=== PATIENT | female | born 1955 | race Hispanic/Latino ===

== ENCOUNTER 2016-12-26 13:55 | Emergency (ER) | payer OTHER ==
[~2016-12-26] VITALS: Ht 160 cm; Wt 68.6 kg
[~2016-12-26 13:55] MED LIST: ASPI-973 PO; LISI-567 PO; METF1000 PO; MICO150A TP; POLY17PO15 PO; mevacor
[2016-12-26 13:58] VITALS: BP 149/70; PULSE 116; RESP 20; O2SAT 97
[2016-12-26] MEDS ORDERED: LOVA20TA PO (14:04)
[2016-12-26] MEDS ORDERED: Ondansetron 2 mg/mL 2 mL Inj IVPUSH PRN (14:30)
[2016-12-26] MEDS ORDERED: 0.9% Sodium Chloride 1,000 ML IV ONE (14:30)
[2016-12-26] MEDS ORDERED: Pantoprazole 4 mg/mL 10 mL Inj IVPUSH ONE (14:30)
[2016-12-26 14:58] LABS: BASOPHILS % (AUTO) 0.2 % (0-3); EOSINOPHILS % (AUTO) 0.6 % (0-5); MONOCYTES % (AUTO) 0.4 % (4-12); Mean Corpuscular Volume 81.8 fL (81-100); NEUTROPHILS % (AUTO) 91.6 % (40-74); Platelet Count 161 bil/L (150-400)
[2016-12-26 15:03] LABS: Magnesium 1.5 mg/dL (1.6-2.6)
--- NOTE | 2016-12-26 15:05 | ED.REPORT ---
HPI-Abd Pain F 40 and Over Date of Service Dec 26, 2016 ED Provider: Gómez Ayala MD The patient is a 61 year old female w/ a hx of DM and HTN who presents to the ED from accompanied by her family due to vomiting onset yesterday. At the her temperature measured 103F, it is 102F at the ED. Her was admitted to [facility] yesterday to keep for overnight observation for a potential heart attack. Upon hearing this news, she had one episode of vomiting and began to experience nausea and dizziness. Today, after hearing more stressful news, she vomited two more times. She denies cough, dysuria, incontinence, diaphoresis, and chest pain. She has had similar stress reactions in the past. Her reportedly has the influenza. Other small children in the house have been sick as well. Nursing Notes Stated Complaint: VOMITING Chief Complaint: Female Abdominal Pain Nursing Notes Reviewed: Yes Allergies: Coded Allergies: No Known Allergies (Verified Allergy, Unknown, 12/26/16) Scheduled Aspirin (Aspirin) 81 Mg Tablet 81 MG PO DAILY Lisinopril (Lisinopril) 20 Mg Tablet 20 MG PO DAILY Lovastatin (Lovastatin) 20 Mg Tablet 20 MG PO BID Metformin (Glucophage) 1,000 Mg Tablet 1,000 MG PO BID Ondansetron ODT (Ondansetron ODT) 4 Mg Tab.rapdis 4 MG PO TID Sulfamethoxazole/Trimeth 800-160 mg (Bactrim DS) 1 Each Tablet 1 TABLET PO BID General Time Seen by MD: 15:04 Chief Complaint Vomiting mild Hx Obtained From: Patient Arrived By: Walk-in Sudden in Onset?: Yes Onset Occurred: Yesterday Symptom Duration: Since onset Recent Healthcare: No recent doctor visit, No recent hospitalization Similar Sx Previous: No Past Medical History Past Medical History Reports: Diabetes mellitus, Hypertension Past Surgical History denies Smoking History Unknown if Ever Smoker Social History Other Social History: Good social support, , Local resident Ambulatory Status Independent Review of Systems Constitutional: Reports: Fever Respiratory: Denies: Non-productive cough Cardiovascular: Denies: Chest pain GI: Reports: Nausea, Vomiting Female: Denies: Dysuria, Incontinence Complete sys rev & neg: except as marked. Skin: Denies Diaphoresis Neurologic: Reports: Dizziness Physical Exam Vital Signs Vital Signs (First) Date Time Temp Pulse Resp B/P Pulse Ox O2 Delivery O2 Flow Rate FiO2 3/18/17 13:58 39.0 116 20 149/70 97 Room Air Initial VS: Reviewed Head / Eyes: Atraumatic, Normocephalic, PERRL ENT: Mucous membranes moist, Conjunctiva normal, No scleral icterus Neck: Supple, Non-tender, Full range of motion Extremities: Vascular intact, Neuro intact, No swelling, No tenderness Skin: Warm, Dry, No cyanosis Psychiatric: Mood/affect normal, Behavior normal, Normal thought content General/Constitutional: Awake, Alert, Cooperative Respiratory / Chest: Atraumatic, Breath sounds NL, No respiratory distress Cardiovascular: Heart rate NL, Regular rhythm, Heart sounds NL, No gallop, No murmurs, No rubs Tenderness/Guarding/Rebound: Positive: Tender RLQ... (Mild) Back: No CVA tenderness Neck: Atraumatic, Supple, Non-tender Interpretation & Diagnostics Lab Results Interpretation Result Diagram: 12/26/16 1415 12/26/16 1415 Test 12/26/16 14:15 12/26/16 15:35 12/26/16 18:15 White Blood Count 5.3th/mm3 (3.8-10.1) Red Blood Count 4.28mil/mm3 (3.90-5.20) Hemoglobin 12.0g/dL (12.0-15.6) Hematocrit 35.0% (35.0-46.0) Mean Corpuscular Volume 81.8fL (81-100) Mean Corpuscular Hemoglobin 28.0pg (27.0-35.0) Mean Corpuscular Hemoglobin Concent 34.3% (32.0-37.0) Red Cell Distribution Width 12.6% (12.3-15.4) Platelet Count 161bil/L (150-400) Neutrophils (%) (Auto) 91.6% (40-74) Lymphocytes (%) (Auto) 7.0% (14-46) Monocytes (%) (Auto) 0.4% (4-12) Eosinophils (%) (Auto) 0.6% (0-5) Basophils (%) (Auto) 0.2% (0-3) Hold Purple Top Tube Received (Received) Hold Blue Top Tube Received (Received) Sodium Level 135mEq/L (134-144) Potassium Level 3.5mEq/L (3.5-5.2) Chloride Level 97mEq/L (97-108) Carbon Dioxide Level 21mmol/L (18-29) Blood Urea Nitrogen 20mg/dL (8-27) Creatinine 0.53mg/dL (0.57-1.00) Estimat Glomerular Filtration Rate 168mL/min (>59) Glucose Level 174mg/dL (60-99) Calcium Level 9.3mg/dL (8.5-10.1) Magnesium Level 1.5mg/dL (1.6-2.6) Total Bilirubin 0.7mg/dL (0.0-1.2) Aspartate Amino Transf (AST/SGOT) 21U/L (0-50) Alanine Aminotransferase (ALT/SGPT) 10U/L (0-32) Alkaline Phosphatase 77U/L (25-165) Total Protein 7.0g/dL (6.4-8.4) Albumin 4.2g/dL (3.4-5.0) Lipase 19U/L (13-60) Hold [place] Top Tube Received (Received) Hold [place] Top Tube Received (Received) Urine Color Yellow (YELLOW) Urine Appearance Hazy (CLEAR,HAZY) Urine pH 6.0 (5.0-8.0) Urine Specific [place] 1.025 (1.003-1.035) Urine Protein 30mg/dL (NEG,TRACE) Urine Glucose (UA) Negativemg/dL (NEGATIVE) Urine Ketones Negativemg/dL (NEGATIVE) Urine Occult Blood Moderate (NEGATIVE) Urine Nitrite Positive (NEGATIVE) Urine Bilirubin Negative (NEGATIVE) Urine Urobilinogen Normalmg/dL (NORMAL) Urine Leukocyte Esterase Trace (NEGATIVE) Urine RBC 3-10/hpf (0-2) Urine WBC 0-5/hpf (0-5) Urine Epithelial Cells Few/hpf (NONE-MOD) Urine Crystals None seen (NONE SEEN) Urine Bacteria Many/hpf (NONE-FEW) Urine Hyaline Casts None/lpf (NONE) Urine Granular Casts None seen (NONE SEEN) Urine Waxy Casts None seen (NONE SEEN) Urine Red Blood Cell Casts None seen (NONE SEEN) Urine White Blood Cell Casts None seen (NONE SEEN) Urine Mucus None seen (None Seen) Urine Trichomonas None seen (NONE SEEN) Urine Yeast None (NONE SEEN) Urinalysis Comment None Urine Culture Reflexed Indicated Lactic Acid Level 1.2mmol/L (0.4-2.0) Lab Results Interpretation: Negative for flu ECG Interpretation Time: 15:22 Interpreted by: ED physician Rhythm / Conduction: Tachycardia (108) X-Ray Chest Interpretation Chest Xray Interpretation: IMPRESSION: Right midlung focal airspace opacity suspicious for pneumonia. Dictated by: Fabiola Lopez MD, PhD on 12/26/2016 at 18:14 Approved by: Fabiola Lopez MD, PhD on 12/26/2016 at 18:14 View: Portable Interpretation / Wet Read by: Interpret - Radiologist Re-Eval/Medical Decision Med Decision/Clinical Course NS 1 L and rocephin 2g IV given, also given ondansetron with no further vomiting and tolerated PO. Multiple supportive family members present who speak lao. Looks well, prefers discharge. Counseled Regarding: Diagnosis, Lab results, Need for follow-up, When/why to return to ED Discharge & Departure Primary Impression: Urinary tract infection Urinary tract infection type: acute cystitis Hematuria presence: without hematuria Qualified Code: N30.00 - Acute cystitis without hematuria Additional Impression: Vomiting Vomiting type: unspecified Vomiting Intractability: non-intractable Nausea presence: with nausea Qualified Code: R11.2 - Nausea with vomiting, unspecified Disposition: Home Discharge Condition All VS Reviewed: Yes Condition: Stable Additional Instructions: Emergency Room evaluation today included interview, examination, labs, and imaging. We noted a fever, vital signs examination are otherwise reassuring. We did a influenza screen which was negative.e are concerned about a possible urinary tract infection or even possible pneumonia however neither of these are clearly present. Urine culture was sent and results will be available in about 48 hours. Pneumonia is less likely as are no symptoms compatible with that. Because of this, I am sending you home with antibiotics called Trimethoprim sulfa. Start this tomorrow and take it for a week. Ondansetron as needed for nausea and vomiting. Antibiotic coverage in the emergency department was provided which will last for 24 hours. The results of the urine culture will be back in a few days and will tell us if you have a urinary tract infection. Follow up with your primary care physician as needed. Return to the Emergency Department for any new or worsening symptoms including high fevers, weakness, uncontrolled vomiting, cough, chest pain, and trouble breathing. I hope you feel better soon! Referrals: Lázaro Koenig MD (PCP) Jcarlosibgeo Attestation Portion of this note were transcribed by Ana Britt. I, Dr. Ayala, personally performed the history, physical exam, and medical decision-making: I reviewed and confirmed the accuracy for the information in the transcribed note. Signed by: brunilda Mccloud, 12/26/16 2000 copies to: Lázaro Koenig MD, Donald L MD Dec 26, 2016 15:05 Ana Britt Dec 26, 2016 17:44
[2016-12-26 16:00] LABS: APPEARANCE,URINE HAZY (CLEAR,HAZY); COLOR,URINE YELLOW (YELLOW); OCCULT BLOOD,URINE MODERATE (NEGATIVE)
[2016-12-26 16:01] LABS: UROBILINOGEN,URINE NORMAL (NORMAL)
[2016-12-26] MEDS ORDERED: cefTRIAXone Inj 2,000 MG in Dextrose 5% Minibag Plus 50 ML IV ONE (17:40)
--- NOTE | 2016-12-26 18:16 | DRSVH ---
PROCEDURE: X-RAY CHEST ONE VIEW, PORTABLE ([id number]) INDICATIONS: fever TECHNIQUE: One view of the chest was acquired. COMPARISON: None. FINDINGS: Surgical changes and devices: None. Lungs and pleura: No pleural effusions or pneumothorax. Focal opacity noted in the right midlung. Mediastinum: Mediastinal contours appear normal. Heart size is normal. Bones and chest wall: No suspicious bony lesions. Overlying soft tissues appear unremarkable. IMPRESSION: Right midlung focal airspace opacity suspicious for pneumonia. Dictated by: Fabiola Lopez MD, PhD on 12/26/2016 at 18:14 Approved by: Fabiola Lopez MD, PhD on 12/26/2016 at 18:14
[2016-12-26] MEDS ORDERED: ONDA4TAB12 PO (20:08)
[2016-12-26] MEDS ORDERED: SULF1TAB7 PO (20:08)
[2016-12-26 20:19] VITALS: BP 106/57; PULSE 85; RESP 16; O2SAT 96
[2016-12-27] MEDS ORDERED: PRE20 PO (06:38)
[2016-12-27] MEDS ORDERED: ONDA8TAB10 PO (06:38)
[2016-12-29] MEDS ORDERED: CIPR-231 PO (09:32)
== END 2016-12-26 20:20 | disposition home or self-care (01) ==
LOC: SED 13:55
DX: N30.00 Acute cystitis without hematuria (principal); R11.2 Nausea with vomiting, unspecified; B96.20 Unspecified Escherichia coli [E. coli] as the cause of diseases classified elsewhere; E11.9 Type 2 diabetes mellitus without complications; I10 Essential (primary) hypertension; Z79.84 Long term (current) use of oral hypoglycemic drugs
CPT/HCPCS: 36415; 71010; 80053; 81000; 83605; 83690; 83735; 85025; 87040; 87077; 87086; 87088; 87186; 87804; 93005; 96361; 96365; 96375; 99285; J0696; J2405; J7030

== ENCOUNTER 2016-12-27 03:39 | Emergency (ER) | payer OTHER ==
[~2016-12-27] VITALS: Ht 165.1 cm; Wt 151.0 kg
[~2016-12-27 03:39] MED LIST changes: +LOVA20TA PO; -MICO150A TP; +ONDA4TAB12 PO; -POLY17PO15 PO; +SULF1TAB7 PO; -mevacor
[2016-12-27 03:42] VITALS: BP 124/70; PULSE 110; RESP 21; O2SAT 95
--- NOTE | 2016-12-27 05:00 | ED.REPORT ---
HPI-Headache Date of Service Dec 27, 2016 ED Provider: Dr. Carrillo Mendoza M.D. A 61 year old female with a history of diabetes and hypertension presents to the ED with a headache onset one hour prior to arrival. The patient also reports nausea. She denies vomiting, photophobia, jaw claudication, visual disturbance, or other symptoms. The patient was in the ED yesterday with similar symptoms, which resolved during the day today before returning. Nursing Notes Stated Complaint: SHAKING Chief Complaint: Headache Nursing Notes Reviewed: Yes Allergies: Coded Allergies: No Known Allergies (Verified Allergy, Unknown, 12/26/16) Scheduled Aspirin (Aspirin) 81 Mg Tablet 81 MG PO DAILY Lisinopril (Lisinopril) 20 Mg Tablet 20 MG PO DAILY Lovastatin (Lovastatin) 20 Mg Tablet 20 MG PO BID Metformin (Glucophage) 1,000 Mg Tablet 1,000 MG PO BID Ondansetron ODT (Ondansetron ODT) 4 Mg Tab.rapdis 4 MG PO TID Prednisone (PredniSONE) 20 Mg Tablet 40 MG PO BID Sulfamethoxazole/Trimeth 800-160 mg (Bactrim DS) 1 Each Tablet 1 TABLET PO BID Scheduled PRN Ondansetron ODT (Ondansetron ODT) 8 Mg Tab.rapdis 8 MG PO QID PRN PRN For Nausea General Time Seen by MD: 05:00 Chief Complaint Headache Hx Obtained From: Patient Arrived By: Walk-in Sudden in Onset?: No Onset Occurred: 1 - 4 hours ago Symptom Duration: Since onset Location: : Generalized Quality: Painful Severity: Current: Moderate Severity: Maximum: Moderate Associated with: Reports: Nausea, Denies: Fever, Photophobia, Vomiting Pertinent Negative: Relieved by nothing Related History: Reports: Hypertension Recent Healthcare: Recent doctor visit Similar Sx Previous: Yes Past Medical History Past Medical History Reports: Diabetes mellitus, Hypertension Past Surgical History denies Smoking History Unknown if Ever Smoker Social History Other Social History: Good social support, , Local resident Ambulatory Status Independent Review of Systems Review of Systems Note: - Jaw claudication Constitutional: Denies: Fever Eyes: Denies: Photophobia GI: Reports: Nausea, Denies: Vomiting Neurologic: Reports: Headache, Denies: Vision change Complete sys rev & neg: except as marked. Respiratory: Denies: Non-productive cough, Shortness of breath Physical Exam Initial Vital Signs Vital Signs (First) Date Time Temp Pulse Resp B/P Pulse Ox O2 Delivery O2 Flow Rate FiO2 12/27/16 03:42 37.3 110 21 124/70 95 Room Air Initial VS: Reviewed ENT: Conjunctiva normal, No scleral icterus Respiratory: Breath sounds normal, Clear to auscultation, No respiratory distress Cardiovascular: Regular rate & rhythm, Heart sounds normal Skin: Warm, Dry, No cyanosis Psychiatric: Mood/affect normal, Behavior normal, Normal thought content General/Constitutional: Awake, Alert Head / Eyes: Atraumatic, Normocephalic, PERRL, EOMI Palpable temporal pulses No temporal tenderness Neck: Supple, Full range of motion Neck / Muscle Tenderness: Positive: Paraspinal L..., Paraspinal R... Neurologic: Oriented X3, Speech NL, No motor deficits, No sensory deficits, CN II - XII intact Interpretation & Diagnostics Lab Results Interpretation Result Diagram: 12/27/16 0420 12/27/16 0420 Test 12/27/16 04:20 White Blood Count 6.4th/mm3 (3.8-10.1) Red Blood Count 3.80mil/mm3 (3.90-5.20) Hemoglobin 10.5g/dL (12.0-15.6) Hematocrit 31.4% (35.0-46.0) Mean Corpuscular Volume 82.6fL (81-100) Mean Corpuscular Hemoglobin 27.6pg (27.0-35.0) Mean Corpuscular Hemoglobin Concent 33.4% (32.0-37.0) Red Cell Distribution Width 12.8% (12.3-15.4) Platelet Count 135bil/L (150-400) Neutrophils (%) (Auto) 93.1% (40-74) Lymphocytes (%) (Auto) 5.0% (14-46) Monocytes (%) (Auto) 1.4% (4-12) Eosinophils (%) (Auto) 0.3% (0-5) Basophils (%) (Auto) 0.2% (0-3) Erythrocyte Sedimentation Rate 45mm/hr (0-40) Hold Purple Top Tube Received (Received) Hold Blue Top Tube Received (Received) Sodium Level 138mEq/L (134-144) Potassium Level 3.6mEq/L (3.5-5.2) Chloride Level 101mEq/L (97-108) Carbon Dioxide Level 21mmol/L (18-29) Blood Urea Nitrogen 19mg/dL (8-27) Creatinine 0.67mg/dL (0.57-1.00) Estimat Glomerular Filtration Rate 128mL/min (>59) Glucose Level 159mg/dL (60-99) Calcium Level 8.7mg/dL (8.5-10.1) C-Reactive Protein 6.9mg/dL (0.0-0.5) Hold [place] Top Tube Received (Received) Hold [place] Top Tube Received (Received) CT Head Interpretation Mild atrophy with low attenuation in the left occipital lobe raising the possibility of an ischemic event. Discussed with Dr. Mendoza at 12/27/16 5:36:48 AM PDT. He states patient has no visual symptoms. Study: Head CT no contrast Interpretation / Wet Read by: Interpret - Radiologist, Discussed w radiologist Re-Eval/Medical Decision Med Decision/Clinical Course 61-year-old presents with headache for the second anaerobe. She has no prior history of migraine. She has mild photophobia but no jaw claudication, no visual disturbance, and no other generalized inflammatory signs. However, her scalp is diffusely tender. Her sedimentation rate is forty-five. CRP is significantly elevated. Concern for temporal arteritis remains. Referred to ear nose and throat for biopsy on Wednesday. Discussed with Dr. Adorno. Discharge now stable condition on prednisone 40 mg twice a day. Source of Hx: Old records Re-Evaluation/Progress : Time of Eval: 06:45 )( Patient Status: Condition improved Re-Evaluation/Progress Note: Discussed with patient lab and CT results, diagnosis, and plan for discharge. Follow-up and return to the ER instructions given. Patient agrees with plan for care and all questions were addressed. Counseled Regarding: Diagnosis, Lab results, Need for follow-up, When/why to return to ED Discharge & Departure Impression: Primary Impression: Headache Headache type: unspecified Headache chronicity pattern: acute headache Intractability: not intractable Qualified Code: R51 - Headache Additional Impression: Elevated sedimentation rate Disposition: Home Discharge Condition All VS Reviewed: Yes Condition: Improved Patient Instructions: Acute Headache (ED), Migraine Headache (ED), Temporal Arteritis (ED) Additional Instructions: We do not find any evidence of tumor or bleeding or other immediate issue on the CAT scan. You do have blood tests indicating inflammation, and I remained concerned about the possibility of temporal arteritis. You will need follow-up with ear nose and throat for a temporal artery biopsy on Wednesday. Called ear nose and throat office first thing Wednesday for follow-up. In the meantime, begin prednisone 40 mg twice daily. Return if any immediate problem, particularly visual disturbance, numbness, weakness, or other new symptoms of concern. Zofran if needed for nausea No encontramos ninguna evidencia de tumor o sangrado u otro problema inmediato en el TAC. Usted tiene anlisis de ignacia que indican inflamacin, y yo segua preocupado por la posibilidad de arteritis temporal. Usted necesitar un seguimiento con la nariz y la garganta del odo para kellie biopsia de arteria temporal el lunes. Llamado oreja nariz y garganta oficina primera cosa el lunes para el seguimiento. Mientras tanto, comience la prednisona 40 mg dos veces al da. Regresar si hay algn problema inmediato, particularmente perturbacin visual, entumecimiento, debilidad u otros sntomas nuevos de preocupacin. Zofran si es necesario para las nuseas Referrals: Lázaro Koenig MD (PCP) Hieu Adorno MD Scribe Attestation Portions of this note were transcribed by Kenia Atwood. I, Dr. Mendoza, personally performed the history, physical exam, and medical decision-making; I reviewed and confirmed the accuracy of the information in the transcribed note. Signed by: Lee Byers, 12/27/2016, 06:55 copies to: Hieu Adorno MD; Lázaro Koenig MD, Christopher W MD Dec 27, 2016 05:00 KENIA ATWOOD Dec 27, 2016 05:07
[2016-12-27] MEDS ORDERED: Haloperidol 5 mg/mL Inj IVPUSH ONE (05:05)
[2016-12-27] MEDS ORDERED: Dexamethasone 10 mg/mL Inj IVPUSH ONE (05:05)
[2016-12-27] MEDS ORDERED: 0.9% Sodium Chloride 1,000 ML IV ONE (05:05)
[2016-12-27 05:23] LABS: BASOPHILS % (AUTO) 0.2 % (0-3); EOSINOPHILS % (AUTO) 0.3 % (0-5); MONOCYTES % (AUTO) 1.4 % (4-12); Mean Corpuscular Hemoglobin 27.6 pg (27.0-35.0); Mean Corpuscular Volume 82.6 fL (81-100); NEUTROPHILS % (AUTO) 93.1 % (40-74); Platelet Count 135 bil/L (150-400)
[2016-12-27 05:58] LABS: ERYTHROCYTE SEDIMENTATION RATE 45 mm/hr (0-40)
[2016-12-27] MEDS ORDERED: ONDA8TAB10 PO (06:38)
[2016-12-27] MEDS ORDERED: PRE20 PO (06:38)
[2016-12-27 06:50] VITALS: BP 111/58; PULSE 80; RESP 16; O2SAT 93
--- NOTE | 2016-12-27 08:12 | DRSVH ---
PROCEDURE: CT BRAIN WITHOUT CONTRAST ([id number]) INDICATIONS: New onset of headache. TECHNIQUE: Noncontrast 4.5 mm thick angled axial sections acquired from the foramen magnum to the vertex, with c oronal reformats. COMPARISON: None. FINDINGS: Image quality: Excellent. CSF spaces: Basal cisterns are patent. No extra-axial fluid collections. The ventricles are symmet oxana in size and shape. Brain: Subtle hypodensity in the left occipital lobe is noted. There is a calcific density in the ri ght basal ganglia. No intracranial bleeds or masses. There is cerebral volume loss for age. There a re mild periventricular and deep white matter chronic small vessel ischemic changes. There is intrac ranial internal carotid artery atherosclerosis. Skull and face: Calvarium and visualized facial bones appear intact, without suspicious lesions. Sinuses: Visualized sinuses and mastoids are clear. IMPRESSION: 1. Subtle hypodensity in the left occipital lobe. Cannot rule out subacute ischemia. If clinical symp toms persist or clinical suspicion for pathology is high, a repeat examination or MRI is suggested fo r further evaluation. No significant discrepancy with the grants administrator radiology preliminary report. Dictated by: Phillip Hernandez M.D. on 12/27/2016 at 8:05 Approved by: Phillip Hernandez M.D. on 12/27/2016 at 8:10
[2016-12-29] MEDS ORDERED: CIPR-231 PO (09:32)
== END 2016-12-27 06:51 | disposition home or self-care (01) ==
LOC: SED 03:39
DX: R51 Headache (principal); R70.0 Elevated erythrocyte sedimentation rate; R11.0 Nausea; E11.59 Type 2 diabetes mellitus with other circulatory complications; I10 Essential (primary) hypertension; Z79.82 Long term (current) use of aspirin; Z79.84 Long term (current) use of oral hypoglycemic drugs
CPT/HCPCS: 36415; 70450; 80048; 85025; 85651; 86140; 96361; 96374; 96375; 99285; J1100; J1200; J1630; J1885; J7030